=== PATIENT | male | born 1950 | race Caucasian/White ===

== ENCOUNTER 2020-04-03 16:29 | Emergency (ER) | payer OTHER, SELFPAY ==
--- NOTE | ~2020-04-03 | XR_ITS ---
XR elbow LT min 3V 04/03/2020 16:57 INDICATION: Left elbow pain PROCEDURE: 4 views left elbow COMPARISON: No prior studies for comparison. FINDINGS: Fracture, dislocation or subluxation is not identified. The soft tissues appear within norm al limits. No foreign bodies are identified. IMPRESSION: 1: NO ACUTE BONE OR JOINT ABNORMALITY IDENTIFIED. Reviewed, dictated and finalized at location A.
[2020-04-03 16:40] VITALS: BP 150/49; PULSE 83; RESP 18; TEMP 37.3; O2SAT 98
--- NOTE | 2020-04-03 16:51 | ED.UPPEXIN ---
HPI - Extremity Injury (Upper) General Chief Complaint: Extremity Injury, Upper Stated Complaint: left arm swollen Time Seen by Provider: 04/03/20 16:45 Source: patient Mode of arrival: ambulatory Limitations: no limitations History of Present Illness HPI narrative: Shivani Velasquez is a 69 yo male with no PMH who comes to express care for left elbow injury that occurred 2 weeks ago when he fell off a combine and struck elbow at small abrasion to elbow that is since healed but the elbow is now swollen painful and indurated. He stated that he felt better for a number of days after the incident but the last 3 to 4 days is gotten continually worse and is painful to straighten or flex and tender to touch Related Data Allergies Allergy/AdvReac Type Severity Reaction Status Date / Time No Known Allergies Allergy Verified 04/03/20 16:47 Review of Systems Review of Systems: Narrative: CONSTITUTIONAL: Denies fever, chills, sweats. EYES: Denies visual changes, redness, discharge. ENT: Denies rhinorrhea, congestion, sore throat, otalgia. CARDIOVASCULAR: Denies chest pain, palpitations, edema. RESPIRATORY: Denies dyspnea, wheezing, cough GASTROINTESTINAL: Denies abdominal pain, nausea, vomiting, diarrhea. GENITOURINARY: Denies dysuria, hematuria, abnormal discharge SKIN: Denies rash or itching. NEUROLOGIC: Denies numbness, or focal weakness. PSYCHIATRIC: Denies anxiety or depression. Red swollen painful left elbow post injury remote 2 weeks PMFSH Past Medical History Medical History No acute medical problems Family History Family History Father Alcoholism Social History Social History Smoking status: Never smoker Alcohol intake: never Comments At time of signature, I agree with nursing past medical, surgical, social and family history. There is no relevant family history pertinent to the presenting complaint. Blood pressure is elevated this is possibly due to to the pain from his elbow follow up with PCP Exam Narrative: Exam Narrative: GENERAL: This is a well-nourished, well-developed patient, in mild distress. HEAD: normocephalic, atraumatic. EYES: Sclera clear/white. Vision is grossly intact. EARS: External ears normal, Hearing grossly intact. NOSE: External nose normal without nasal discharge, nares without redness, no rhinorrhea. THROAT: Mucous membranes moist, NECK: Neck supple, CARDIOVASCULAR: Regular rate and rhythm without murmurs, gallops, or rubs. RESPIRATORY: Clear to auscultation. Breath sounds equal bilaterally. No wheezes, rales, or rhonchi. GASTROINTESTINAL: Abdomen soft, SKIN: warm, intact with no suspicious lesions or rash, good texture and turgor. NEURO: awake, alert, and oriented to person, place and time. There were no obvious focal neurologic abnormalities. Steady gait EXTREMITIES: Normal range of motion. Good indurated right elbow with open area where scab was; tender to touch area of induration is around all of olecranon. BACK: Nontender without deformity Course Course Emergency Course: Came to express care for evaluation of left elbow after fall 2 weeks ago elbow is now red and swollen X ray of left elbow-x-ray read as no acute joint abnormality; started on antibiotics combination of Bactrim and Keflex; warm soaks to the arm arm obese line put in sling; needs follow-up with orthopedics Vital Signs Vital signs: Vital Signs Temperature 99.1 F 04/03/20 16:40 Pulse Rate 83 04/03/20 16:40 Respiratory Rate 18 04/03/20 16:40 Blood Pressure 150/49 H 04/03/20 16:40 Pulse Oximetry 98 04/03/20 16:40 Temperature 99.1 F 04/03/20 16:40 Pulse Rate 83 04/03/20 16:40 Respiratory Rate 18 04/03/20 16:40 Blood Pressure 150/49 H 04/03/20 16:40 Pulse Oximetry 98 04/03/20 16:40 MDM - Extremity Injury (Upper)
[2020-04-03] MEDS: TETANUS,DIPHTHERIA,AC PERTUSSIS ADULT (0.5 ML) BOOSTRIX IM (17:02)
== END 2020-04-03 17:32 | disposition home or self-care (01) ==
PROVIDERS: Emergency Provider Nurse Practitioner; PCP Family Medicine Adolescent Medicine
DX: L03.114 Cellulitis of left upper limb (principal)
CPT/HCPCS: 73080; 90471; 90715; 99213; A4565; G0463

== ENCOUNTER 2022-05-12 09:39 | Emergency (ER) | payer OTHER, SELFPAY ==
[2022-05-12 09:42] VITALS: BP 138/73; PULSE 71; RESP 14; TEMP 36.4; O2SAT 96
--- NOTE | 2022-05-12 09:59 | ED.URI ---
HPI - URI/Sore Throat General Chief Complaint: Upper Respiratory Infection Stated Complaint: cold sore throat and head congestion Time Seen by Provider: 05/12/22 09:59 History of Present Illness HPI Narrative: Patient presents with a full week long history of nasal congestion cough runny nose and sinus pressure. Patient states he works outside of this taken multiple [id number] medications for his symptoms. No shortness of breath no chest pain no high fever. Related Data Home Medications Medication Instructions Recorded Confirmed No Home Medications 05/12/22 05/12/22 Allergies Allergy/AdvReac Type Severity Reaction Status Date / Time No Known Allergies Allergy Verified 05/12/22 10:04 Review of Systems Review of Systems: CONSTITUTIONAL: Denies chills, or sweats. Reports fever and generalized body aches EYES: Denies visual changes, redness, or discharge. ENT: Denies otalgia. Reports nasal congestion runny nose and sore throat CARDIOVASCULAR: Denies chest pain, palpitations, or edema. RESPIRATORY: Denies dyspnea. Reports occasional cough GASTROINTESTINAL: Denies abdominal pain, nausea, vomiting, or diarrhea. GENITOURINARY: Denies dysuria or hematuria. SKIN: Denies rash or itching. MUSCULOSKELETAL: Denies back pain, joint pain, or myalgia. Reports generalized body aches NEUROLOGIC: Denies headache, numbness, or weakness. PSYCHIATRIC: Denies anxiety or depression. [facility] Past Medical History Medical History No acute medical problems Family History Family History Father Alcoholism Social History Social History Smoking status: Never smoker Alcohol intake: never Comments At time of signature, agree with nursing past medical, surgical, social and family history. There is no relevant family history pertinent to the presenting complaint Exam Narrative: The patient is a well-developed, well-nourished in no acute distress. SKIN: Skin is warm and dry without erythema, swelling or exudate. There is good turgor. No tenting. HEAD: Atraumatic. Normocephalic. No temporal or scalp tenderness. EYES: Moist and bright. Sclera and conjunctivae normal. No discharge. PERRLA. Extraocular motions intact. Gross visual acuity intact. EARS: Pinna is normal shape and contour. Clear external auditory canals. TM pearly krause with good cone of light, no erythema or suppuration. Bilateral cerumen noted no gross hearing deficit. NOSE: pink, moist mucosa with good air movement. Clear rhinorrhea without nasal flaring. Septum midline. Moderate amount of maxillary sinus pressure and tenderness Mouth: moist mucous membranes. THROAT; mild erythema noted to posterior oropharynx with moderate postnasal drainage. Without exudate or ulceration.. Uvula midline. Normal movement of soft palate. NECK: Supple and nontender with full range of motion without discomfort. No meningeal signs. LUNGS: Equal and bilateral breath sounds without wheezes, rales or rhonchi. CHEST: The chest wall is without retractions or use of accessory muscles. HEART: Has a regular rate and rhythm without murmur, gallops, click or rub. ABDOMEN: Soft, nontender with positive active bowel sounds. No rebound tenderness. EXTREMITIES: Without cyanosis, clubbing or edema. Equal 2+ distal pulses and 2 second capillary refill noted. NEUROLOGIC: alert, active, . The patient moves all extremities with normal muscle strength. Normal muscle tone is noted. Normal coordination is noted. NO focal neurological findings noted. Course Course Level of Care: Express Care Visit Vital Signs Vital signs: Vital Signs Temperature 36.4 C 05/12/22 09:42 Pulse Rate 71 05/12/22 09:42 Respiratory Rate 14 05/12/22 09:42 Blood Pressure 138/73 05/12/22 09:42 Pulse Oximetry 96 05/12/22 09:42 Oxygen Delivery Room Air 1
== END 2022-05-12 10:11 | disposition home or self-care (01) ==
PROVIDERS: Emergency Provider Nurse Practitioner Family; PCP Family Medicine Adolescent Medicine
DX: J01.00 Acute maxillary sinusitis, unspecified (principal)
CPT/HCPCS: 99211; G0463

== ENCOUNTER 2024-06-20 00:08 | Day surgery (SDC) | payer OTHER, SELFPAY ==
[2024-06-02 09:52] VITALS: BMI 25.0
[2024-06-20 06:27] VITALS: BP 116/72; PULSE 97; RESP 16; TEMP 36.2; O2SAT 98
[2024-06-20] MEDS: LACTATED RINGERS 1,000 ML 150 ML IV CONT (06:37)
--- NOTE | 2024-06-20 07:54 | PM.HPGS ---
History of Present Illness History of Present Illness Consent: Risks, benefits, and alternatives have been discussed and questions answered. Patient agrees to proceed with procedure. Chief complaint: fecal abnormalities Narrative: Shivani Velasquez is a 73 year old male here for first colonoscopy, + fobt Review of Systems Review of Systems: All systems reviewed & are unremarkable except as noted in HPI and below PMFSH Past Medical History Medical History (Updated 06/20/24 @ 07:55 by Raj Rosales MD) Occult blood in stools No acute medical problems Family History Family History (Updated 05/20/23 @ 05:43 by Merrick Bernal MD) Father Alcoholism COPD (chronic obstructive pulmonary disease) Mother Heart disease Social History Social History Smoking status: Never smoker Alcohol intake: never Substance use: never Substance use type: does not use Living arrangements: with family Spiritual care concerns: No Meds Home Medications and Allergies Home Medications ?Medication ?Instructions ?Recorded ?Confirmed ?Type diclofenac sodium 75 mg 75 mg PO BID #60 tabs 04/06/24 06/02/24 Rx tablet,delayed release Allergies Allergy/AdvReac Type Severity Reaction Status Date / Time No Known Allergies Allergy Verified 06/20/24 06:25 Vital Signs Vital Signs - 24 hr 06/20/24 06:27 Temperature 97.2 F L Pulse Rate 97 Respiratory Rate 16 Blood Pressure 116/72 Pulse Oximetry 98 Oxygen Delivery Room Air Exam Const: General: comfortable and no acute distress HENMT: Face/Nose/Sinus: Normal nares present Eyes: General: appearance normal, both eyes and all related structures Neck: Neck: no JVD Resp: Auscultation: clear to auscultation bilaterally Cardio: Rate: regular rate Rhythm: regular rhythm GI: Inspection: non-distended GI Palp: Yes Soft to palpation Skin: General skin exam: normal color Neuro: General: gait normal Speech: normal speech Extrem: General: normal to inspection Psych: Mental Status: mental status grossly normal Assessment and Plan Assessment and plan (1) Occult blood in stools: Code(s): R19.5 - Other fecal abnormalities Status: Acute Assessment and Plan: colonoscopy
[2024-06-20 08:35] VITALS: BP 98/63; PULSE 72; RESP 14; O2SAT 93
[2024-06-20 08:45] VITALS: BP 96/56; PULSE 70; RESP 14; O2SAT 92
[2024-06-20 08:55] VITALS: BP 118/76; PULSE 63; RESP 15; O2SAT 94
== END 2024-06-20 09:16 | disposition home or self-care (01) ==
PROVIDERS: PCP Family Medicine Adolescent Medicine; Referring Provider Family Medicine Adolescent Medicine; Visit Provider Internal Medicine Gastroenterology
PROC: 0DJD8ZZ Inspection of Lower Intestinal Tract, Via Natural or Artificial Opening Endoscopic (ICD-10-PCS; CPT 45378; principal; 2024-06-20 08:00)
DX: D12.2 Benign neoplasm of ascending colon (principal); D12.3 Benign neoplasm of transverse colon; D12.4 Benign neoplasm of descending colon; K63.5 Polyp of colon; Z82.49 Family history of ischemic heart disease and other diseases of the circulatory system
CPT/HCPCS: 45385; 88305; J2003; J2371; J2704; J7120

== ENCOUNTER 2024-11-07 17:47 | Emergency (ER) | payer OTHER, SELFPAY ==
--- NOTE | ~2024-11-07 | CT_ITS ---
EXAMINATION: CTA chest PE protocol DATE: 11/07/2024 20:24 INDICATION: SOA TECHNIQUE: Computed tomography angiography (CTA) of the chest was performed with 100 mL Omnipaque-350 intravenous contrast timed to evaluate the pulmonary arteries. Coronal maximum intensity projection 3D-reconstructions were created by the technologist. The dose-length product (DLP) was 499.85 mGy-cm. Automated exposure control and iterative reconstruction technique were employed. COMPARISON: X-ray chest, same date. FINDINGS: Lung parenchyma and airways: No focal consolidation or pneumothorax. Minimal bibasilar atelectasis. B ibasilar scar. Left major fissure intrafissural node. Granuloma is calcifications. Patent airways. Pleura: Unremarkable. Thoracic inlet, axillae and chest wall: Unremarkable. Thoracic aorta: No significant dilation. No dissection. Mild atherosclerotic calcification Mediastinum: Normal. Heart and pericardium: Normal. Coronary artery calcifications: Mild. Upper abdomen: No significant finding. Bones: No acute osseous finding. Pulmonary arteries: Study quality: Adequate. No pulmonary emboli detected. IMPRESSION: No CT evidence of acute pulmonary embolus. No acute intrathoracic process detected. Reviewed, dictated and finalized at location K.
--- NOTE | ~2024-11-07 | XR_ITS ---
EXAMINATION: XR chest 2V Exam Date/Time: 11/07/2024 18:12 CDT HISTORY: sob Comparison: None. RESULT: Lines, tubes, and devices: None. Lungs and pleura: Clear. Cardiomediastinal silhouette: Unremarkable. Other: No acute osseous or upper abdominal finding. IMPRESSION: No acute cardiopulmonary process. Reviewed, dictated and finalized at location K.
[2024-11-07 17:43] VITALS: BP 145/93; PULSE 68; RESP 23; TEMP 36.4; O2SAT 100
--- NOTE | 2024-11-07 17:51 | ECG_ITS ---
Test Date: 2024-11-07 17:53:55 Measurements Intervals Mathews Rate: 72 P: 74 HI: 167 QRS: -6 QRSD: 83 T: 41 QT: 423 QTc: 464 Interpretive Statements SINUS RHYTHM BASELINE ARTIFACT- I, II, III, AVR, AVL, AVF, V1-V6 NORMAL ECG No previous ECG available for comparison Electronically Signed On 11-07-2024 20:38:04 CDT by Darek Stacy D.O.
[2024-11-07 17:55] VITALS: PULSE 66; O2SAT 100
[2024-11-07] MEDS: SODIUM CHLORIDE 0.9% IV 1,000 ML 999 ML IV CONT (18:07)
[2024-11-07 18:22] LABS: Basophils Percent Auto 0.7 % (0.2-1.2); Eosinophils Absolute Auto 0.2 K/mm3 (0-0.3); Eosinophils Percent Auto 2.7 % (0-4.4); Hematocrit 35.2 % (42.0-52.0); Hemoglobin 12.3 g/dL (14.0-18.0); Immature Granulocyte Absolute 0.08 K/mm3 (0.00-0.031); Immature Granulocyte Percent A 1.4 % (0-0.5); Lymphocytes Absolute Auto 0.61 K/mm3 (0.9-3.2); Lymphocytes Percent Auto 10.4 % (18.3-44.2); Mean Corpuscular HGB Conc 34.9 g/dl (32-36); Mean Corpuscular Hemoglobin 31.1 pg (26-34); Mean Corpuscular Volume 89.1 fl (80-100); Monocytes Absolute Auto 0.6 K/mm3 (0.1-0.6); Monocytes Percent Auto 9.9 % (2.6-8.5); Neutrophils Absolute Auto 4.4 K/mm3 (1.3-6.7); Neutrophils Percent Auto 74.9 % (45.5-73.1); Platelet Count Result 223 k/mm3 (150-375); Red Blood Count 3.95 M/mm3 (4.6-6.20); Red Cell Distribution Width 11.9 % (11.5-14.5); White Blood Count 5.8 K/mm3 (4.5-10.0)
[2024-11-07 18:48] LABS: Lactic Acid Reflex 1.7 mmol/L (0.7-2.0)
[2024-11-07 18:50] LABS: Alanine Aminotransferase 19 U/L (6-50); Albumin Level 3.9 g/dL (3.5-5.1); Alkaline Phosphatase 85 U/L (38-126); Anion Gap 8 mmol/L (4-12); Aspartate Amino Transferase 26 U/L (17-59); Bilirubin,Total 0.7 mg/dL (0.2-1.3); Blood Urea Nitrogen 17 mg/dL (9-20); Calcium 9.1 mg/dL (8.4-10.2); Carbon Dioxide 21 mmol/L (22-30); Chloride 108 mmol/L (98-107); Estimated CRCL calculation 58 ml/min; Estimated Glomerular Filt Rate > 60; Glucose 105 mg/dL (65-110); Sodium 137 mmol/L (137-145)
--- OUTSIDE RECORDS SUMMARY | 2024-11-07 18:56 | XMS_ITS | Clinical Summary ---
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 Gender Identity Not on file Sexual Orientation Not on file Plan of Treatment Health Maintenance Due Date Last Done Comments Colon Cancer Screening-Colonoscopy 1952 Depression Screening 1952 Fall Risk Assessment 1950 Hepatitis C Screening 1950 DTaP/Tdap/Td Vaccine (1 - Tdap) 12/28/1963 Hepatitis B Screening 1970 Pneumococcal vaccine 65+ (1 of 1 - PCV) 2002 Abdominal Aortic Aneurysm (A AA) Screen 2017 Well Visit 65+ 2017 Covid-19 Vaccine (2023-2 5 season) 2024 04/06/2024, 07/07/2023, 05/26/2022, Additional history exists Zoster Vaccine Completed 07/07/2023, 05/05/2023 Influenza Vaccine Completed 04/06/2024, , 05/26/2022 Insurance [facility] [place] Care Teams Motorcycle Deliverer Relationship Specialty Start Date End Date Merrick Bernal MD [address] [place] [address] PCP - General Family Medicine 07/04/24
--- OUTSIDE RECORDS SUMMARY | 2024-11-07 18:56 | XMS_ITS | Referral Summary ---
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
--- OUTSIDE RECORDS SUMMARY | 2024-11-07 18:57 | XMS_ITS ---
Author Organization [facility] Address [address] [place] [address] Phone Care Team Providers Care Decommissioning Well Site Manager Name Role Phone Aayush Nguyen MD Unavailable Tico Ibrahim MD Unavailable [phone] Merrick Bernal MD Primary Care Provider + Active Problems Problem Noted Date Diagnosed Date History of therapeutic radiation 09/09/2024 Overview (09/09/2024): Prostate and pelvic lymph node radiotherapy 70 Gy to the prostate/sv and 50.40 Gy to the clinically uninvolved pelvic lymph node in 20 fractions from 08/02/2024 thru 09/08/2024. Androgen deprivation therapy 07/15/2024 Overview (07/15/2024): Started Orgovyx and Xtandi 07/11/2024. Prostate cancer 07/13/2024 Cancer Staging:Clinical stage from 05/27/2024:Stage IIIA(cT2a, cN0, cM0, PSA: 31.5, Grade Group: 3) - Signed by Tico Ibrahim MD on 07/15/2024 Overview (09/09/2024): By NCCN criteria clinically localized high-risk group prostate cancer, AJCC 8th edition clinical stage IIIA (cT2a, cN0, cM0, PSA: 31.5). High-risk group secondary to PSA greater than 20. Prostate cancer was confirmed on prostate biopsies 05/27/2024. He was started on ADT with Orgovyx and Xtandi 07/11/2024 under the guidance of urology. He began prostate and pelvic lymph node radiotherapy 08/02/2024 and completed 09/08/2024 receiving 70 Gy to the prostate/sv and 50.40 Gy to the clinically uninvolved pelvic lymph node in 20 fractions. Current Treatment and Therapy Plans No current plan information found. Past Treatment and Therapy Plans No past plan information found. Current Radiation Episodes * VMAT: Bilateral Prostate, Bilateral PelvisOverview* First Treatment Date Latest Treatment Date Treatment Site Technique Goal Episode Provider 08/02/2024 09/08/2024 Bilateral ProstateBilateral Pelvis VMAT Curative * Linked Problems Treatment Courses* Course C1 08/02/2024 - 09/08/2024 Treatment Period Fraction Dose Fractions Total Dose Plans Planned [id number] 08/02/2024 - 09/08/2024 250 cGy / 28 7 ,000 cGy Reference Points Delivered Pelvis_PRP 08/02/2024 - 09/08/2024 7,000 cGy
--- OUTSIDE RECORDS SUMMARY | 2024-11-07 18:57 | XMS_ITS | Clinical Summary ---
Author Organization [facility] Address [address] [place] [address] Phone Care Team Providers Care Television Cameraman Name Role Phone Aayush Nguyen MD Unavailable Tico Ibrahim MD Unavailable [phone] Merrick Bernal MD Primary Care Provider + Allergies No known active allergies Medications Xtandi 80 MG Tablet Take 80 mg by mouth daily. Take; 2 tablets once a day 07/01/2024 Active Orgovyx 120 MG Tablet Take 120 mg by mouth daily. 07/01/2024 Active Active Problems Problem Noted Date Diagnosed Date [...] uninvolved pelvic lymph node in 20 fractions. Encounters Date Type Department Care Team Description 10/04/2024 9:00 AM CDT Office Visit [facility] Oncology Services [address] [place] [phone] Tico Ibrahim MD Encounter for monitoring androgen deprivation therapy (Primary Dx); Prostate cancer (HCC); History of therapeutic radiation Discharge Disposition: Discharged to home or Selfcare 10/04/2024 Travel 09/19/2024 1:44 PM CDT - 09/19/2024 11:59 PM CDT Hospital Encounter [facility] Mammography [address] [place] [address] Tico Ibrahim MD Discharge Disposition: Discharged to home or Selfcare 09/19/2024 Travel 09/14/2024 Documentation Only [facility] [address] [place] [phone] Tico Ibrahim MD 09/08/2024 1:00 PM CDT Clinical Support [facility] [address] [place] [phone] Tico Ibrahim MD Encounter for radiotherapy (Primary Dx); Encounter for monitoring androgen deprivation therapy; Prostate cancer (HCC); Acute radiation proctitis; Lower urinary tract symptoms (LUTS); Adverse effect of radiation, initial encounter Discharge Disposition: Discharged to home or Selfcare 09/08/2024 Travel 09/07/2024 1:00 PM CDT Clinical Support [facility] Oncology [facility] [address] [place] [phone] Tico Ibrahim MD Discharge Disposition: Discharged to home or Selfcare 09/07/2024 Travel 09/06/2024 1:00 PM CDT Clinical Support [facility] Oncology [facility] [address] [place] [phone] Tico Ibrahim MD Discharge Disposition: Discharged to home or Selfcare 09/06/2024 Travel 09/05/2024 1:15 PM CDT Office Visit [facility] On[facility] [address] [place] [phone] Tico Ibrahim MD Encounter for radiotherapy (Primary Dx); Androgen deprivation therapy; Prostate cancer (HCC); Acute radiation proctitis; Lower urinary tract symptoms (LUTS); Adverse effect of radiation, initial encounter Discharge Disposition: Discharged to home or Selfcare 09/05/2024 1:00 PM CDT Clinical Support [facility] Oncology Services [address] [place] [phone] Tico Ibrahim MD Discharge Disposition: Discharged to home or Selfcare 09/05/2024 Travel 09/02/2024 1:00 PM CDT Clinical Support [facility] [address] [place] [phone] Tico Ibrahim MD Discharge Disposition: Discharged to home or Selfcare 09/02/2024 Travel 09/01/2024 1:00 PM CDT Clinical Support [facility] [address] [place] [phone] Tico Ibrahim MD Discharge Disposition: Discharged to home or Selfcare 09/01/2024 Travel 08/31/2024 1:00 PM CDT Clinical Support [facility] Oncology [facility] [address] [place] [phone] Tico Ibrahim MD Discharge Disposition: Discharged to home or Selfcare 08/31/2024 Travel 08/30/2024 1:00 PM CDT Clinical Support [facility] Oncology [facility] [address] [place] [phone] Tico Ibrahim MD Discharge Disposition: Discharged to home or Selfcare 08/30/2024 Travel 08/29/2024 1:15 PM CDT Office Visit [facility] [address] [place] [phone] Tico Ibrahim MD Encounter for radiotherapy (Primary Dx); Androgen deprivation therapy; Prostate cancer (HCC); Acute radiation proctitis; Lower urinary tract symptoms (LUTS); Adverse effect of radiation, initial encounter Discharge Disposition: Discharged to home or Selfcare 08/29/2024 1:00 PM CDT Clinical Support [facility] [address] [place] [phone] Tico Ibrahim MD Discharge Disposition: Discharged to home or Selfcare 08/29/2024 Travel 08/26/2024 1:00 PM CDT Clinical Support [facility] [address] [place] [phone] Tico Ibrahim MD Discharge Disposition: Discharged to home or Selfcare 08/26/2024 Travel 08/25/2024 1:00 PM CDT Clinical Support [facility] [address] [place] [phone] Tico Ibrahim MD Discharge Disposition: Discharged to home or Selfcare 08/25/2024 Travel 08/24/2024 1:00 PM CDT Clinical Support [facility] [address] [place] [phone] Tico Ibrahim MD Discharge Disposition: Discharged to home or Selfcare 08/24/2024 Travel 08/23/2024 1:00 PM CDT Clinical Support [facility] On[facility] [address] [place] [phone] Tico Ibrahim MD Discharge Disposition: Discharged to home or Selfcare 08/23/2024 Travel 08/22/2024 1:15 PM CDT Office Visit [facility] [address] [place] [phone] Tico Ibrahim MD Encounter for radiotherapy (Primary Dx); Androgen deprivation therapy; Prostate cancer (HCC); Acute radiation proctitis; Lower urinary tract symptoms (LUTS); Adverse effect of radiation, initial encounter Discharge Disposition: Discharged to home or Selfcare 08/22/2024 1:00 PM CDT Clinical Support [facility] [address] [place] [phone] Tico Ibrahim MD Discharge Disposition: Discharged to home or Selfcare 08/22/2024 Travel 08/19/2024 1:00 PM CDT Clinical Support [facility] [address] [place] [phone] Tico Ibrahim MD Discharge Disposition: Discharged to home or Selfcare 08/19/2024 Travel 08/18/2024 1:00 PM CDT Clinical Support [facility] [address] [place] [phone] Tico Ibrahim MD Discharge Disposition: Discharged to home or Selfcare 08/18/2024 Travel 08/17/2024 1:00 PM CDT Clinical Support [facility] [address] [place] [phone] Tico Ibrahim MD Discharge Disposition: Discharged to home or Selfcare 08/17/2024 Travel 08/16/2024 1:00 PM CDT Clinical Support [facility] [address] [place] [phone] Tico Ibrahim MD Discharge Disposition: Discharged to home or Selfcare 08/16/2024 Travel 08/15/2024 1:15 PM CDT Office Visit [facility] [address] [place] [phone] Tico Ibrahim MD Encounter for radiotherapy (Primary Dx); Androgen deprivation therapy; Prostate cancer (HCC) Discharge Disposition: Discharged to home or Selfcare 08/15/2024 1:00 PM CDT Clinical Support [facility] [address] [place] [phone] Tico Ibrahim MD Discharge Disposition: Discharged to home or Selfcare 08/15/2024 Travel 08/12/2024 1:00 PM LOCK STITCH CHANNELER Clinical Support [facility] [address] [place] [phone] Tico Ibrahim MD Discharge Disposition: Discharged to home or Selfcare 08/12/2024 Travel 08/11/2024 1:00 PM LOCK STITCH CHANNELER Clinical Support [facility] [address] [place] [phone] Tico Ibrahim MD Discharge Disposition: Discharged to home or Selfcare 08/11/2024 Travel 08/10/2024 1:00 PM LOCK STITCH CHANNELER Clinical Support [facility] [address] [place] [phone] Tico Ibrahim MD Discharge Disposition: Discharged to home or Selfcare 08/10/2024 Documentation Only [facility] [address] [place] [phone] Tico Ibrahim MD 08/10/2024 Travel 08/09/2024 1:00 PM LOCK STITCH CHANNELER Clinical Support [facility] Oncology Services [address] [place] [phone] Tico Ibrahim MD Discharge Disposition: Discharged to home or Selfcare 08/09/2024 Travel 08/08/2024 1:15 PM LOCK STITCH CHANNELER [facility] [address] [place] [phone] Tico Ibrahim MD Encounter for radiotherapy (Primary Dx); Androgen deprivation therapy; Prostate cancer (HCC) Discharge Disposition: Discharged to home or Selfcare 08/08/2024 1:00 PM LOCK STITCH CHANNELER Clinical Support [facility] [address] [place] [phone] Tico Ibrahim MD Discharge Disposition: Discharged to home or Selfcare 08/08/2024 Travel from Last 3 Months Family History Medical History Relation Name Comments Emphysema Father Heart Disease Mother Prostate Cancer Paternal Cousin Alive but having to take a pill 10 years later so likely has metastatic disease. 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 LOCK STITCH CHANNELER Gender Identity Not on file Sexual Orientation Not on file Last Filed Vital Signs Vital Sign Reading Time Taken Comments Blood Pressure 123/65 10/04/2024 8:58 AM CDT Pulse 76 10/04/2024 8:58 AM CDT Temperature 36.2 C (97.2 F) 10/04/2024 8:58 AM CDT Respiratory Rate 18 10/04/2024 8:58 AM CDT Oxygen Saturation 99% 10/04/2024 8:58 AM CDT Inhaled Oxygen Concentration - - Weight 78.5 kg (173 lb) 10/04/2024 8:58 AM CDT Height 172.7 cm (5' 8) 10/04/2024 8:58 AM CDT Body Mass Index 26.3 10/04/2024 8:58 AM CDT Plan of Treatment Upcoming Encounters Date Type Department Care Team (Late st Contact Info) Description 01/03/2025 9:30 AM CDT [facility] [address] [place] [phone] Tico Ibrahim MD [address] [place] [address] Discharge Disposition: Discharged to home or Selfcare Health Maintenance Due Date Last Done Comments Hepatitis C Virus (HCV) Screening 1950 TdaP Immunization 1950 Pneumococcal Immunization (50+ years) (1 of 2 - PCV) 12/28/1971 Colonoscopy 1997 Colorectal Cancer Screening 1997 Cologuard 2002 Immunochemical Fecal Occult Blood 2002 SARS-COV-2 Immunization (6 - Mixed Product risk season) 2024 04/06/2024, 07/07/2023, 05/26/2022, Additional history exists Respiratory Syncytial Virus (RSV) Immunization (Adult) Completed 07/07/2023 Zoster Immunization Completed 07/07/2023, Influenza Immunization Completed , 05/05/2023, 05/26/2022 Hepatitis B Immunization Aged Out No longer eligible based on patient's age to complete this topic Human Papillomavirus (HPV) Immunization Aged Out No longer eligible based on patient's age to complete this topic Meningococcal Immunization (ACWY) Aged Out No longer eligible based on patient's age to complete this topic Rotavirus Immunization Aged Out No lo nger eligible based on patient's age to complete this topic Procedures Procedure Name Priority Date/Time Associated Diagnosis Comments JUNAID BONE DENSITOMETRY AXIAL SKELETON Routine 09/19/2024 2:10 PM CDT Prostate cancer (HCC) Androgen deprivation therapy RAD ONC ARIA COURSE SUMMARY Routine 09/09/2024 7:26 AM CDT RAD ONC ARIA SESSION SUMMARY Routine 09/08/2024 1:08 PM CDT Encounter for radiotherapy Encounter for monitoring androgen deprivation therapy Prostate cancer (HCC) RAD ONC ARIA SESSION SUMMARY Routine 09/07/2024 1:09 PM CDT RAD ONC ARIA SESSION SUMMARY Routine 09/06/2024 1:08 PM CDT RAD ONC ARIA SESSION SUMMARY Routine 09/05/2024 1:08 PM CDT RAD ONC ARIA SESSION SUMMARY Routine 09/02/2024 1:09 PM CDT RAD ONC ARIA SESSION SUMMARY Routine 09/01/2024 1:11 PM CDT RAD ONC ARIA SESSION SUMMARY Routine 08/31/2024 1:11 PM CDT RAD ONC ARIA SESSION SUMMARY Routine 08/30/2024 1:12 PM CDT RAD ONC ARIA SESSION SUMMARY Routine 08/29/2024 1:10 PM CDT RAD ONC ARIA SESSION SUMMARY Routine 08/26/2024 1:13 PM CDT RAD ONC ARIA SESSION SUMMARY Routine 08/25/2024 1:09 PM CDT RAD ONC ARIA SESSION SUMMARY Routine 08/24/2024 1:11 PM CDT RAD ONC ARIA SESSION SUMMARY Routine 08/23/2024 1:15 PM CDT RAD ONC ARIA SESSION SUMMARY Routine 08/22/2024 1:14 PM CDT RAD ONC ARIA SESSION SUMMARY Routine 08/19/2024 1:11 PM CDT RAD ONC ARIA SESSION SUMMARY Routine 08/18/2024 1:16 PM CDT RAD ONC ARIA SESSION SUMMARY Routine 08/17/2024 1:14 PM CDT RAD ONC ARIA SESSION SUMMARY Routine 08/16/2024 1:03 PM CDT RAD ONC ARIA SESSION SUMMARY Routine 08/15/2024 1:07 PM CDT RAD ONC ARIA SESSION SUMMARY Routine 08/12/2024 1:09 PM LOCK STITCH CHANNELER RAD ONC ARIA SESSION SUMMARY Routine 08/11/2024 1:09 PM LOCK STITCH CHANNELER RAD ONC ARIA SESSION SUMMARY Routine 08/10/2024 1:08 PM LOCK STITCH CHANNELER RAD ONC ARIA SESSION SUMMARY Routine 08/09/2024 1:08 PM LOCK STITCH CHANNELER RAD ONC ARIA SESSION SUMMARY Routine 08/08/2024 1:12 PM LOCK STITCH CHANNELER from Last 3 Months Results * JUNAID BONE DENSITOMETRY AXIAL SKELETON (09/19/2024 2:10 PM CDT) Anatomical Region Laterality Modality BODY N/A Computed Radiogr aphy 09/21/2024 5:56 AM CDT Impressions 09/21/2024 5:58 AM CDT IMPRESSION: Normal bone mass. REFERENCE: Bone mineral density: T-Score: Normal (T-score above or = -1.0) Low bone mass (T-score between -1.0 and -2.5) replaces the previously used term osteopenia Osteoporosis (T-score = or below -2.5) Z-Score: Within the expected range for age (Z-score above -2.0) Below the expected range for age (Z-score is -2.0 or below) Please see below follow up recommendations. Medical evaluation for secondary causes of low bone mineral density may be appropriate. FRAX is a World Health Organization validated fracture risk assessment tool that calculates a person's 10 year probability of a major osteoporosis related fracture and hip fracture. According to the National Osteoporosis Foundation guidelines, postmenopausal women and men age 50 or older with low bone mass and a 10 year probability of a major osteoporosis related fracture = or greater than 20% or a 10 year probability of a hip fracture = or greater than 3% should be considered for pharmacological treatment for the prevention of osteoporosis. For further information, including treatment recommendations, please refer to the 2019 ISCD Official Positions (http://www.iscd.org) and the NOF's Clinician's Guide to Prevention and Treatment of Osteoporosis (http://www.nof.org/professionals/clinical-guidelines) Narrative 09/21/2024 5:58 AM CDT EXAM DESCRIPTION: [facility] BONE DENSITOMETRY AXIAL SKELETON REASON FOR STUDY: 73 y/o year old M with given history of: Prostate cancer (HCC) (By NCCN criteria clinically localized high-risk group, AJCC 8th edition clinical stage IIIA.), Androgen deprivation therapy (Started Orgovyx and Xtandi 07/11/2024.) 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 CLINICAL INFORMATION: Current height: 68 inches Maximum height: 68 inches Weight: 172.8 pounds Risk factors: None COMPARISON: None available FINDINGS: AP LUMBAR SPINE L1-L4: Total BMD is 1.510 g/cm2 T-score is 2.2 LEFT HIP: Total BMD is 1.328 g/cm2 T-score is 1.6 Femoral neck BMD is 1.279 g/cm2 T-score is 1.6 FRAX: FRAX not reported due to T-scores of hip, femoral neck and/or spine being at or above -1.0 (Normal). THIS IS AN ELECTRONICALLY VERIFIED FINAL REPORT 09/21/2024 5:56 AM - Electronically signed by Jeannine Wadsworth M.D. 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 CLINICAL INFORMATION: Current height: 68 inches Maximum height: 68 inches Weight: 172.8 pounds Risk factors: None COMPARISON: None available FINDINGS: AP LUMBAR SPINE L1-L4: Total BMD is 1.510 g/cm2 T-score is 2.2 LEFT HIP: Total BMD is 1.328 g/cm2 T-score is 1.6 Femoral neck BMD is 1.279 g/cm2 T-score is 1.6 FRAX: FRAX not reported due to T-scores of hip, femoral neck and/or spine being at or above -1.0 (Normal). THIS IS AN ELECTRONICALLY VERIFIED FINAL REPORT 09/21/2024 5:56 AM - Electronically signed by Jeannine Wadsworth M.D. TW: TW Report ID: [id number] Reading Location: [place] [address] IMPRESSION: Normal bone mass. REFERENCE: Bone mineral density: T-Score: Normal (T-score above or = -1.0) Low bone mass (T-score between -1.0 and -2.5) replaces the previously used term osteopenia Osteoporosis (T-score = or below -2.5) Z-Score: Within the expected range for age (Z-score above -2.0) Below the expected range for age (Z-score is -2.0 or below) Please see below follow up recommendations. Medical evaluation for secondary causes of low bone mineral density may be appropriate. FRAX is a World Health Organization validated fracture risk assessment tool that calculates a person's 10 year probability of a major osteoporosis related fracture and hip fracture. According to the National Osteoporosis Foundation guidelines, postmenopausal women and men age 50 or older with low bone mass and a 10 year probability of a major osteoporosis related fracture = or greater than 20% or a 10 year probability of a hip fracture = or greater than 3% should be considered for pharmacological treatment for the prevention of osteoporosis. For further information, including treatment recommendations, please refer to the 2019 ISCD Official Positions (http://www.iscd.org) and the NOF's Clinician's Guide to Prevention and Treatment of Osteoporosis (http://www.nof.org/professionals/clinical-guidelines) us Tico Ibrahim MD IMG DEXA ORDERABLES Fin al Result * RAD ONC ARIA COURSE SUMMARY (09/09/2024 7:26 AM CDT) Course ID C1 ARIA RO MODEL Course Intent Curative ARIA RO MODEL Course Start Date 07/15/2024 2:24 PM ARIA RO MODEL Course End Date 09/09/2024 7:26 AM 08/02/2024 1:29 PM ARIA RO MODEL Course Last Treatment Date 09/08/2024 1:11 PM ARIA RO MODEL Course Elapsed Days 37 ARIA RO MODEL Reference Point ID Pelvis_PRP ARIA RO MODEL Reference Point Dosage Given to Date 70 Gy ARIA RO MODEL Plan ID [id number] ARIA RO MODEL Plan Name [id number] ARIA RO MODEL Energy 10X ARIA RO MODEL Plan Fractions Treated to Date 28 ARIA RO MODEL Plan Total Fractions Prescribed 28 ARIA RO MODEL Plan Prescribed Dose Per Fraction 2.5 Gy ARIA RO MODEL Plan Total Prescribed Dose 7,000 cGy ARIA RO MODEL Plan Primary Reference Point Pelvis_PRP ARIA RO MODEL 09/09/2024 7:26 AM CDT us Unknown Provider RADIATION ONCOLOGY ORDERABLES F inal Result ARIA RO MODEL [address] [place] [address] * RAD ONC ARIA SESSION SUMMARY (09/08/2024 1:08 PM CDT) Course ID C1 ARIA RO MODEL Course Intent Curative ARIA RO MODEL Course Start Date 07/15/2024 2:24 PM ARIA RO MODEL Session Number 28 ARIA RO MODEL Course End Date 08/02/2024 1:29 PM ARIA RO MODEL Course Last Treatment Date 09/08/2024 1:11 PM ARIA RO MODEL Course Elapsed Days 37 ARIA RO MODEL Reference Point ID Pelvis_PRP ARIA RO MODEL Reference Point Dosage Given to Date 70 Gy ARIA RO MODEL Reference Point Session Dosage Given 2.5 Gy ARIA RO MODEL Plan ID [id number] ARIA RO MODEL Plan Name Prostate & [id number] ARIA RO MODEL Energy 10X ARIA RO MODEL Plan Fractions Treated to Date 28 ARIA RO MODEL Plan Total Fractions Prescribed 28 ARIA RO MODEL Plan Prescribed Dose Per Fraction 2.5 Gy ARIA RO MODEL Plan Total Prescribed Dose 7,000 cGy ARIA RO MODEL Plan Primary Reference Point Pelvis_PRP ARIA RO MODEL 09/08/2024 1:08 PM CDT us Unknown Provider RADIATION ONCOLOGY ORDERABLES F inal Result Performing Organization Address City/State/[facility] Co de Phone Number ARIA RO MODEL [address] [place] [address] * RAD ONC ARIA SESSION SUMMARY (09/07/2024 1:09 PM CDT) Course ID C1 ARIA RO MODEL Course Intent Curative ARIA RO MODEL Course Start Date 07/15/2024 2:24 PM ARIA RO MODEL Session Number 27 ARIA RO MODEL Course End Date 08/02/2024 1:29 PM ARIA RO MODEL Course Last Treatment Date 09/07/2024 1:12 PM ARIA RO MODEL Course Elapsed Days 36 ARIA RO MODEL Reference Point ID Pelvis_PRP ARIA RO MODEL Reference Point Dosage Given to Date 67.5 Gy ARIA RO MODEL Reference Point Session Dosage Given 2.5 Gy ARIA RO MODEL Plan ID [id number] ARIA RO MODEL Plan Name Prostate & [id number] ARIA RO MODEL Energy 10X ARIA RO MODEL Plan Fractions Treated to Date 27 ARIA RO MODEL Plan Total Fractions Prescribed 28 ARIA RO MODEL Plan Prescribed Dose Per Fraction 2.5 Gy ARIA RO MODEL Plan Total Prescribed Dose 7,000 cGy ARIA RO MODEL Plan Primary Reference Point Pelvis_PRP ARIA RO MODEL 09/07/2024 1:09 PM CDT us Unknown Provider RADIATION ONCOLOGY ORDERABLES F inal Result Performing Organization Address [facility] Co de Phone Number ARIA RO MODEL [address] [place] [address] * RAD ONC ARIA SESSION SUMMARY (09/06/2024 1:08 PM CDT) Course ID C1 ARIA RO MODEL Course Intent Curative ARIA RO MODEL Course Start Date 07/15/2024 2:24 PM ARIA RO MODEL Session Number 26 ARIA RO MODEL Course End Date 08/02/2024 1:29 PM ARIA RO MODEL Course Last Treatment Date 09/06/2024 1:11 PM ARIA RO MODEL Course Elapsed Days 35 ARIA RO MODEL Reference Point ID Pelvis_PRP ARIA RO MODEL Reference Point Dosage Given to Date 65 Gy ARIA RO MODEL Reference Point Session Dosage Given 2.5 Gy ARIA RO MODEL Plan ID [id number] ARIA RO MODEL Plan Name Prostate & [id number] ARIA RO MODEL Energy 10X ARIA RO MODEL Plan Fractions Treated to Date 26 ARIA RO MODEL Plan Total Fractions Prescribed 28 ARIA RO MODEL Plan Prescribed Dose Per Fraction 2.5 Gy ARIA RO MODEL Plan Total Prescribed Dose 7,000 cGy ARIA RO MODEL Plan Primary Reference Point Pelvis_PRP ARIA RO MODEL 09/06/2024 1:08 PM CDT us Unknown Provider RADIATION ONCOLOGY ORDERABLES F inal Result Performing Organization Address [facility] Co de Phone Number ARIA RO MODEL [address] [place] [address] * RAD ONC ARIA SESSION SUMMARY (09/05/2024 1:08 PM CDT) Course ID C1 ARIA RO MODEL Course Intent Curative ARIA RO MODEL Course Start Date 07/15/2024 2:24 PM ARIA RO MODEL Session Number 25 ARIA RO MODEL Course End Date 08/02/2024 1:29 PM ARIA RO MODEL Course Last Treatment Date 09/05/2024 1:11 PM ARIA RO MODEL Course Elapsed Days 34 ARIA RO MODEL Reference Point ID Pelvis_PRP ARIA RO MODEL Reference Point Dosage Given to Date 62.5 Gy ARIA RO MODEL Reference Point Session Dosage Given 2.5 Gy ARIA RO MODEL Plan ID [id number] ARIA RO MODEL Plan Name Prostate & [id number] ARIA RO MODEL Energy 10X ARIA RO MODEL Plan Fractions Treated to Date 25 ARIA RO MODEL Plan Total Fractions Prescribed 28 ARIA RO MODEL Plan Prescribed Dose Per Fraction 2.5 Gy ARIA RO MODEL Plan Total Prescribed Dose 7,000 cGy ARIA RO MODEL Plan Primary Reference Point Pelvis_PRP ARIA RO MODEL 09/05/2024 1:08 PM CDT us Unknown Provider RADIATION ONCOLOGY ORDERABLES F inal Result Performing Organization Address [facility] [facility] Co de Phone Number ARIA RO MODEL [address] [place] [address] * RAD ONC ARIA SESSION SUMMARY (09/02/2024 1:09 PM CDT) Course ID C1 ARIA RO MODEL Course Intent Curative ARIA RO MODEL Course Start Date 07/15/2024 2:24 PM ARIA RO MODEL Session Number 24 ARIA RO MODEL Course End Date 08/02/2024 1:29 PM ARIA RO MODEL Course Last Treatment Date 09/02/2024 1:12 PM ARIA RO MODEL Course Elapsed Days 31 ARIA RO MODEL Reference Point ID Pelvis_PRP ARIA RO MODEL Reference Point Dosage Given to Date 60 Gy ARIA RO MODEL Reference Point Session Dosage Given 2.5 Gy ARIA RO MODEL Plan ID [id number] ARIA RO MODEL Plan Name Prostate & [id number] ARIA RO MODEL Energy 10X ARIA RO MODEL Plan Fractions Treated to Date 24 ARIA RO MODEL Plan Total Fractions Prescribed 28 ARIA RO MODEL Plan Prescribed Dose Per Fraction 2.5 Gy ARIA RO MODEL Plan Total Prescribed Dose 7,000 cGy ARIA RO MODEL Plan Primary Reference Point Pelvis_PRP ARIA RO MODEL 09/02/2024 1:09 PM CDT us Unknown Provider RADIATION ONCOLOGY ORDERABLES F inal Result Performing Organization Address [facility] Co de Phone Number ARIA RO MODEL [address] [place] [address] * RAD ONC ARIA SESSION SUMMARY (09/01/2024 1:11 PM CDT) Course ID C1 ARIA RO MODEL Course Intent Curative ARIA RO MODEL Course Start Date 07/15/2024 2:24 PM ARIA RO MODEL Session Number 23 ARIA RO MODEL Course End Date 08/02/2024 1:29 PM ARIA RO MODEL Course Last Treatment Date 09/01/2024 1:14 PM ARIA RO MODEL Course Elapsed Days 30 ARIA RO MODEL Reference Point ID Pelvis_PRP ARIA RO MODEL Reference Point Dosage Given to Date 57.5 Gy ARIA RO MODEL Reference Point Session Dosage Given 2.5 Gy ARIA RO MODEL Plan ID [id number] ARIA RO MODEL Plan Name Prostate & [id number] ARIA RO MODEL Energy 10X ARIA RO MODEL Plan Fractions Treated to Date 23 ARIA RO MODEL Plan Total Fractions Prescribed 28 ARIA RO MODEL Plan Prescribed Dose Per Fraction 2.5 Gy ARIA RO MODEL Plan Total Prescribed Dose 7,000 cGy ARIA RO MODEL Plan Primary Reference Point Pelvis_PRP ARIA RO MODEL 09/01/2024 1:11 PM CDT us Unknown Provider RADIATION ONCOLOGY ORDERABLES F inal Result Performing Organization Address City/State/[facility] Co de Phone Number ARIA RO MODEL [address] [place] [address] * RAD ONC ARIA SESSION SUMMARY (08/31/2024 1:11 PM CDT) Course ID C1 ARIA RO MODEL Course Intent Curative ARIA RO MODEL Course Start Date 07/15/2024 2:24 PM ARIA RO MODEL Session Number 22 ARIA RO MODEL Course End Date 08/02/2024 1:29 PM ARIA RO MODEL Course Last Treatment Date 08/31/2024 1:14 PM ARIA RO MODEL Course Elapsed Days 29 ARIA RO MODEL Reference Point ID Pelvis_PRP ARIA RO MODEL Reference Point Dosage Given to Date 55 Gy ARIA RO MODEL Reference Point Session Dosage Given 2.5 Gy ARIA RO MODEL Plan ID [id number] ARIA RO MODEL Plan Name Prostate & [id number] ARIA RO MODEL Energy 10X ARIA RO MODEL Plan Fractions Treated to Date 22 ARIA RO MODEL Plan Total Fractions Prescribed 28 ARIA RO MODEL Plan Prescribed Dose Per Fraction 2.5 Gy ARIA RO MODEL Plan Total Prescribed Dose 7,000 cGy ARIA RO MODEL Plan Primary Reference Point Pelvis_PRP ARIA RO MODEL 08/31/2024 1:11 PM CDT us Unknown Provider RADIATION ONCOLOGY ORDERABLES F inal Result Performing Organization Address [facility] Co de Phone Number ARIA RO MODEL [address] [place] [address] * RAD ONC ARIA SESSION SUMMARY (08/30/2024 1:12 PM CDT) Course ID C1 ARIA RO MODEL Course Intent Curative ARIA RO MODEL Course Start Date 07/15/2024 2:24 PM ARIA RO MODEL Session Number 21 ARIA RO MODEL Course End Date 08/02/2024 1:29 PM ARIA RO MODEL Course Last Treatment Date 08/30/2024 1:16 PM ARIA RO MODEL Course Elapsed Days 28 ARIA RO MODEL Reference Point ID Pelvis_PRP ARIA RO MODEL Reference Point Dosage Given to Date 52.5 Gy ARIA RO MODEL Reference Point Session Dosage Given 2.5 Gy ARIA RO MODEL Plan ID [id number] ARIA RO MODEL Plan Name Prostate & [id number] ARIA RO MODEL Energy 10X ARIA RO MODEL Plan Fractions Treated to Date 21 ARIA RO MODEL Plan Total Fractions Prescribed 28 ARIA RO MODEL Plan Prescribed Dose Per Fraction 2.5 Gy ARIA RO MODEL Plan Total Prescribed Dose 7,000 cGy ARIA RO MODEL Plan Primary Reference Point Pelvis_PRP ARIA RO MODEL 08/30/2024 1:12 PM CDT us Unknown Provider RADIATION ONCOLOGY ORDERABLES F inal Result Performing Organization Address [facility] Co de Phone Number ARIA RO MODEL [address] [place] [address] * RAD ONC ARIA SESSION SUMMARY (08/29/2024 1:10 PM CDT) Course ID C1 ARIA RO MODEL Course Intent Curative ARIA RO MODEL Course Start Date 07/15/2024 2:24 PM ARIA RO MODEL Session Number 20 ARIA RO MODEL Course End Date 08/02/2024 1:29 PM ARIA RO MODEL Course Last Treatment Date 08/29/2024 1:12 PM ARIA RO MODEL Course Elapsed Days 27 ARIA RO MODEL Reference Point ID Pelvis_PRP ARIA RO MODEL Reference Point Dosage Given to Date 50 Gy ARIA RO MODEL Reference Point Session Dosage Given 2.5 Gy ARIA RO MODEL Plan ID [id number] ARIA RO MODEL Plan Name Prostate & [id number] ARIA RO MODEL Energy 10X ARIA RO MODEL Plan Fractions Treated to Date 20 ARIA RO MODEL Plan Total Fractions Prescribed 28 ARIA RO MODEL Plan Prescribed Dose Per Fraction 2.5 Gy ARIA RO MODEL Plan Total Prescribed Dose 7,000 cGy ARIA RO MODEL Plan Primary Reference Point Pelvis_PRP ARIA RO MODEL 08/29/2024 1:10 PM CDT us Unknown Provider RADIATION ONCOLOGY ORDERABLES F inal Result Performing Organization Address City/State/[facility] Co de Phone Number ARIA RO MODEL [address] [place] [address] * RAD ONC ARIA SESSION SUMMARY (08/26/2024 1:13 PM CDT) Course ID C1 ARIA RO MODEL Course Intent Curative ARIA RO MODEL Course Start Date 07/15/2024 2:24 PM ARIA RO MODEL Session Number 19 ARIA RO MODEL Course End Date 08/02/2024 1:29 PM ARIA RO MODEL Course Last Treatment Date 08/26/2024 1:16 PM ARIA RO MODEL Course Elapsed Days 24 ARIA RO MODEL Reference Point ID Pelvis_PRP ARIA RO MODEL Reference Point Dosage Given to Date 47.5 Gy ARIA RO MODEL Reference Point Session Dosage Given 2.5 Gy ARIA RO MODEL Plan ID [id number] ARIA RO MODEL Plan Name Prostate & [id number] ARIA RO MODEL Energy 10X ARIA RO MODEL Plan Fractions Treated to Date 19 ARIA RO MODEL Plan Total Fractions Prescribed 28 ARIA RO MODEL Plan Prescribed Dose Per Fraction 2.5 Gy ARIA RO MODEL Plan Total Prescribed Dose 7,000 cGy ARIA RO MODEL Plan Primary Reference Point Pelvis_PRP ARIA RO MODEL 08/26/2024 1:13 PM CDT us Unknown Provider RADIATION ONCOLOGY ORDERABLES F inal Result Performing Organization Address [facility] Co de Phone Number ARIA RO MODEL [address] [place] [address] * RAD ONC ARIA SESSION SUMMARY (08/25/2024 1:09 PM CDT) Course ID C1 ARIA RO MODEL Course Intent Curative ARIA RO MODEL Course Start Date 07/15/2024 2:24 PM ARIA RO MODEL Session Number 18 ARIA RO MODEL Course End Date 08/02/2024 1:29 PM ARIA RO MODEL Course Last Treatment Date 08/25/2024 1:12 PM ARIA RO MODEL Course Elapsed Days 23 ARIA RO MODEL Reference Point ID Pelvis_PRP ARIA RO MODEL Reference Point Dosage Given to Date 45 Gy ARIA RO MODEL Reference Point Session Dosage Given 2.5 Gy ARIA RO MODEL Plan ID [id number] ARIA RO MODEL Plan Name Prostate & [id number] ARIA RO MODEL Energy 10X ARIA RO MODEL Plan Fractions Treated to Date 18 ARIA RO MODEL Plan Total Fractions Prescribed 28 ARIA RO MODEL Plan Prescribed Dose Per Fraction 2.5 Gy ARIA RO MODEL Plan Total Prescribed Dose 7,000 cGy ARIA RO MODEL Plan Primary Reference Point Pelvis_PRP ARIA RO MODEL 08/25/2024 1:09 PM CDT us Unknown Provider RADIATION ONCOLOGY ORDERABLES F inal Result Performing Organization Address [facility] Co de Phone Number ARIA RO MODEL [address] [place] [address] * RAD ONC ARIA SESSION SUMMARY (08/24/2024 1:11 PM CDT) Course ID C1 ARIA RO MODEL Course Intent Curative ARIA RO MODEL Course Start Date 07/15/2024 2:24 PM ARIA RO MODEL Session Number 17 ARIA RO MODEL Course End Date 08/02/2024 1:29 PM ARIA RO MODEL Course Last Treatment Date 08/24/2024 1:14 PM ARIA RO MODEL Course Elapsed Days 22 ARIA RO MODEL Reference Point ID Pelvis_PRP ARIA RO MODEL Reference Point Dosage Given to Date 42.5 Gy ARIA RO MODEL Reference Point Session Dosage Given 2.5 Gy ARIA RO MODEL Plan ID [id number] ARIA RO MODEL Plan Name Prostate & [id number] ARIA RO MODEL Energy 10X ARIA RO MODEL Plan Fractions Treated to Date 17 ARIA RO MODEL Plan Total Fractions Prescribed 28 ARIA RO MODEL Plan Prescribed Dose Per Fraction 2.5 Gy ARIA RO MODEL Plan Total Prescribed Dose 7,000 cGy ARIA RO MODEL Plan Primary Reference Point Pelvis_PRP ARIA RO MODEL 08/24/2024 1:11 PM CDT us Unknown Provider RADIATION ONCOLOGY ORDERABLES F inal Result Performing Organization Address [facility] Co de Phone Number ARIA RO MODEL [address] [place] [address] * RAD ONC ARIA SESSION SUMMARY (08/23/2024 1:15 PM CDT) Course ID C1 ARIA RO MODEL Course Intent Curative ARIA RO MODEL Course Start Date 07/15/2024 2:24 PM ARIA RO MODEL Session Number 16 ARIA RO MODEL Course End Date 08/02/2024 1:29 PM ARIA RO MODEL Course Last Treatment Date 08/23/2024 1:18 PM ARIA RO MODEL Course Elapsed Days 21 ARIA RO MODEL Reference Point ID Pelvis_PRP ARIA RO MODEL Reference Point Dosage Given to Date 40 Gy ARIA RO MODEL Reference Point Session Dosage Given 2.5 Gy ARIA RO MODEL Plan ID [id number] ARIA RO MODEL Plan Name Prostate & [id number] ARIA RO MODEL Energy 10X ARIA RO MODEL Plan Fractions Treated to Date 16 ARIA RO MODEL Plan Total Fractions Prescribed 28 ARIA RO MODEL Plan Prescribed Dose Per Fraction 2.5 Gy ARIA RO MODEL Plan Total Prescribed Dose 7,000 cGy ARIA RO MODEL Plan Primary Reference Point Pelvis_PRP ARIA RO MODEL 08/23/2024 1:15 PM CDT us Unknown Provider RADIATION ONCOLOGY ORDERABLES F inal Result Performing Organization Address [facility] Co de Phone Number ARIA RO MODEL [address] [place] [address] * RAD ONC ARIA SESSION SUMMARY (08/22/2024 1:14 PM CDT) Course ID C1 ARIA RO MODEL Course Intent Curative ARIA RO MODEL Course Start Date 07/15/2024 2:24 PM ARIA RO MODEL Session Number 15 ARIA RO MODEL Course End Date 08/02/2024 1:29 PM ARIA RO MODEL Course Last Treatment Date 08/22/2024 1:17 PM ARIA RO MODEL Course Elapsed Days 20 ARIA RO MODEL Reference Point ID Pelvis_PRP ARIA RO MODEL Reference Point Dosage Given to Date 37.5 Gy ARIA RO MODEL Reference Point Session Dosage Given 2.5 Gy ARIA RO MODEL Plan ID [id number] ARIA RO MODEL Plan Name Prostate & [id number] ARIA RO MODEL Energy 10X ARIA RO MODEL Plan Fractions Treated to Date 15 ARIA RO MODEL Plan Total Fractions Prescribed 28 ARIA RO MODEL Plan Prescribed Dose Per Fraction 2.5 Gy ARIA RO MODEL Plan Total Prescribed Dose 7,000 cGy ARIA RO MODEL Plan Primary Reference Point Pelvis_PRP ARIA RO MODEL 08/22/2024 1:14 PM CDT us Unknown Provider RADIATION ONCOLOGY ORDERABLES F inal Result ARIA RO MODEL [address] [place] [address] * RAD ONC ARIA SESSION SUMMARY (08/19/2024 1:11 PM CDT) Course ID C1 ARIA RO MODEL Course Intent Curative ARIA RO MODEL Course Start Date 07/15/2024 2:24 PM ARIA RO MODEL Session Number 14 ARIA RO MODEL Course End Date 08/02/2024 1:29 PM ARIA RO MODEL Course Last Treatment Date 08/19/2024 1:15 PM ARIA RO MODEL Course Elapsed Days 17 ARIA RO MODEL Reference Point ID Pelvis_PRP ARIA RO MODEL Reference Point Dosage Given to Date 35 Gy ARIA RO MODEL Reference Point Session Dosage Given 2.5 Gy ARIA RO MODEL Plan ID [id number] ARIA RO MODEL Plan Name Prostate & [id number] ARIA RO MODEL Energy 10X ARIA RO MODEL Plan Fractions Treated to Date 14 ARIA RO MODEL Plan Total Fractions Prescribed 28 ARIA RO MODEL Plan Prescribed Dose Per Fraction 2.5 Gy ARIA RO MODEL Plan Total Prescribed Dose 7,000 cGy ARIA RO MODEL Plan Primary Reference Point Pelvis_PRP ARIA RO MODEL 08/19/2024 1:11 PM CDT us Unknown Provider RADIATION ONCOLOGY ORDERABLES F inal Result Performing Organization Address City/[facility] Co de Phone Number ARIA RO MODEL [address] [place] [address] * RAD ONC ARIA SESSION SUMMARY (08/18/2024 1:16 PM CDT) Course ID C1 ARIA RO MODEL Course Intent Curative ARIA RO MODEL Course Start Date 07/15/2024 2:24 PM ARIA RO MODEL Session Number 13 ARIA RO MODEL Course End Date 08/02/2024 1:29 PM ARIA RO MODEL Course Last Treatment Date 08/18/2024 1:18 PM ARIA RO MODEL Course Elapsed Days 16 ARIA RO MODEL Reference Point ID Pelvis_PRP ARIA RO MODEL Reference Point Dosage Given to Date 32.5 Gy ARIA RO MODEL Reference Point Session Dosage Given 2.5 Gy ARIA RO MODEL Plan ID [id number] ARIA RO MODEL Plan Name Prostate & [id number] ARIA RO MODEL Energy 10X ARIA RO MODEL Plan Fractions Treated to Date 13 ARIA RO MODEL Plan Total Fractions Prescribed 28 ARIA RO MODEL Plan Prescribed Dose Per Fraction 2.5 Gy ARIA RO MODEL Plan Total Prescribed Dose 7,000 cGy ARIA RO MODEL Plan Primary Reference Point Pelvis_PRP ARIA RO MODEL 08/18/2024 1:16 PM CDT us Unknown Provider RADIATION ONCOLOGY ORDERABLES F inal Result Performing Organization Address City/[facility]/ZIP Co de Phone Number ARIA RO MODEL [address] [place] [address] * RAD ONC ARIA SESSION SUMMARY (08/17/2024 1:14 PM CDT) Course ID C1 ARIA RO MODEL Course Intent Curative ARIA RO MODEL Course Start Date 07/15/2024 2:24 PM ARIA RO MODEL Session Number 12 ARIA RO MODEL Course End Date 08/02/2024 1:29 PM ARIA RO MODEL Course Last Treatment Date 08/17/2024 1:17 PM ARIA RO MODEL Course Elapsed Days 15 ARIA RO MODEL Reference Point ID Pelvis_PRP ARIA RO MODEL Reference Point Dosage Given to Date 30 Gy ARIA RO MODEL Reference Point Session Dosage Given 2.5 Gy ARIA RO MODEL Plan ID [id number] ARIA RO MODEL Plan Name Prostate & [id number] ARIA RO MODEL Energy 10X ARIA RO MODEL Plan Fractions Treated to Date 12 ARIA RO MODEL Plan Total Fractions Prescribed 28 ARIA RO MODEL Plan Prescribed Dose Per Fraction 2.5 Gy ARIA RO MODEL Plan Total Prescribed Dose 7,000 cGy ARIA RO MODEL Plan Primary Reference Point Pelvis_PRP ARIA RO MODEL 08/17/2024 1:14 PM CDT us Unknown Provider RADIATION ONCOLOGY ORDERABLES F inal Result ARIA RO MODEL [address] [place] [address] * RAD ONC ARIA SESSION SUMMARY (08/16/2024 1:03 PM CDT) Course ID C1 ARIA RO MODEL Course Intent Curative ARIA RO MODEL Course Start Date 07/15/2024 2:24 PM ARIA RO MODEL Session Number 11 ARIA RO MODEL Course End Date 08/02/2024 1:29 PM ARIA RO MODEL Course Last Treatment Date 08/16/2024 1:06 PM ARIA RO MODEL Course Elapsed Days 14 ARIA RO MODEL Reference Point ID Pelvis_PRP ARIA RO MODEL Reference Point Dosage Given to Date 27.5 Gy ARIA RO MODEL Reference Point Session Dosage Given 2.5 Gy ARIA RO MODEL Plan ID [id number] ARIA RO MODEL Plan Name Prostate & [id number] ARIA RO MODEL Energy 10X ARIA RO MODEL Plan Fractions Treated to Date 11 ARIA RO MODEL Plan Total Fractions Prescribed 28 ARIA RO MODEL Plan Prescribed Dose Per Fraction 2.5 Gy ARIA RO MODEL Plan Total Prescribed Dose 7,000 cGy ARIA RO MODEL Plan Primary Reference Point Pelvis_PRP ARIA RO MODEL 08/16/2024 1:03 PM CDT us Unknown Provider RADIATION ONCOLOGY ORDERABLES F inal Result Performing Organization Address [facility] Co de Phone Number ARIA RO MODEL [address] [place] [address] * RAD ONC ARIA SESSION SUMMARY (08/15/2024 1:07 PM CDT) Course ID C1 ARIA RO MODEL Course Intent Curative ARIA RO MODEL Course Start Date 07/15/2024 2:24 PM ARIA RO MODEL Session Number 10 ARIA RO MODEL Course End Date 08/02/2024 1:29 PM ARIA RO MODEL Course Last Treatment Date 08/15/2024 1:09 PM ARIA RO MODEL Course Elapsed Days 13 ARIA RO MODEL Reference Point ID Pelvis_PRP ARIA RO MODEL Reference Point Dosage Given to Date 25 Gy ARIA RO MODEL Reference Point Session Dosage Given 2.5 Gy ARIA RO MODEL Plan ID [id number] ARIA RO MODEL Plan Name Prostate & [id number] ARIA RO MODEL Energy 10X ARIA RO MODEL Plan Fractions Treated to Date 10 ARIA RO MODEL Plan Total Fractions Prescribed 28 ARIA RO MODEL Plan Prescribed Dose Per Fraction 2.5 Gy ARIA RO MODEL Plan Total Prescribed Dose 7,000 cGy ARIA RO MODEL Plan Primary Reference Point Pelvis_PRP ARIA RO MODEL 08/15/2024 1:07 PM CDT us Unknown Provider RADIATION ONCOLOGY ORDERABLES F inal Result Performing Organization Address [facility] Co de Phone Number ARIA RO MODEL [address] [place] [address] * RAD ONC ARIA SESSION SUMMARY (08/12/2024 1:09 PM LOCK STITCH CHANNELER) Course ID C1 ARIA RO MODEL Course Intent Curative ARIA RO MODEL Course Start Date 07/15/2024 2:24 PM ARIA RO MODEL Session Number 9 ARIA RO MODEL Course End Date 08/02/2024 1:29 PM ARIA RO MODEL Course Last Treatment Date 08/12/2024 1:12 PM ARIA RO MODEL Course Elapsed Days 10 ARIA RO MODEL Reference Point ID Pelvis_PRP ARIA RO MODEL Reference Point Dosage Given to Date 22.5 Gy ARIA RO MODEL Reference Point Session Dosage Given 2.5 Gy ARIA RO MODEL Plan ID [id number] ARIA RO MODEL Plan Name Prostate & [id number] ARIA RO MODEL Energy 10X ARIA RO MODEL Plan Fractions Treated to Date 9 ARIA RO MODEL Plan Total Fractions Prescribed 28 ARIA RO MODEL Plan Prescribed Dose Per Fraction 2.5 Gy ARIA RO MODEL Plan Total Prescribed Dose 7,000 cGy ARIA RO MODEL Plan Primary Reference Point Pelvis_PRP ARIA RO MODEL 08/12/2024 1:09 PM LOCK STITCH CHANNELER us Unknown Provider RADIATION ONCOLOGY ORDERABLES F inal Result Performing Organization Address [facility] Co de Phone Number ARIA RO MODEL [address] [place] [address] * RAD ONC ARIA SESSION SUMMARY (08/11/2024 1:09 PM LOCK STITCH CHANNELER) Course ID C1 ARIA RO MODEL Course Intent Curative ARIA RO MODEL Course Start Date 07/15/2024 2:24 PM ARIA RO MODEL Session Number 8 ARIA RO MODEL Course End Date 08/02/2024 1:29 PM ARIA RO MODEL Course Last Treatment Date 08/11/2024 1:12 PM ARIA RO MODEL Course Elapsed Days 9 ARIA RO MODEL Reference Point ID Pelvis_PRP ARIA RO MODEL Reference Point Dosage Given to Date 20 Gy ARIA RO MODEL Reference Point Session Dosage Given 2.5 Gy ARIA RO MODEL Plan ID [id number] ARIA RO MODEL Plan Name Prostate & [id number] ARIA RO MODEL Energy 10X ARIA RO MODEL Plan Fractions Treated to Date 8 ARIA RO MODEL Plan Total Fractions Prescribed 28 ARIA RO MODEL Plan Prescribed Dose Per Fraction 2.5 Gy ARIA RO MODEL Plan Total Prescribed Dose 7,000 cGy ARIA RO MODEL Plan Primary Reference Point Pelvis_PRP ARIA RO MODEL 08/11/2024 1:09 PM LOCK STITCH CHANNELER us Unknown Provider RADIATION ONCOLOGY ORDERABLES F inal Result Performing Organization Address [facility] Co de Phone Number ARIA RO MODEL [address] [place] [address] * RAD ONC ARIA SESSION SUMMARY (08/10/2024 1:08 PM LOCK STITCH CHANNELER) Course ID C1 ARIA RO MODEL Course Intent Curative ARIA RO MODEL Course Start Date 07/15/2024 2:24 PM ARIA RO MODEL Session Number 7 ARIA RO MODEL Course End Date 08/02/2024 1:29 PM ARIA RO MODEL Course Last Treatment Date 08/10/2024 1:10 PM ARIA RO MODEL Course Elapsed Days 8 ARIA RO MODEL Reference Point ID Pelvis_PRP ARIA RO MODEL Reference Point Dosage Given to Date 17.5 Gy ARIA RO MODEL Reference Point Session Dosage Given 2.5 Gy ARIA RO MODEL Plan ID [id number] ARIA RO MODEL Plan Name Prostate & [id number] ARIA RO MODEL Energy 10X ARIA RO MODEL Plan Fractions Treated to Date 7 ARIA RO MODEL Plan Total Fractions Prescribed 28 ARIA RO MODEL Plan Prescribed Dose Per Fraction 2.5 Gy ARIA RO MODEL Plan Total Prescribed Dose 7,000 cGy ARIA RO MODEL Plan Primary Reference Point Pelvis_PRP ARIA RO MODEL 08/10/2024 1:08 PM LOCK STITCH CHANNELER us Unknown Provider RADIATION ONCOLOGY ORDERABLES F inal Result Performing Organization Address City/State/[facility] Co de Phone Number ARIA RO MODEL [address] [place] [address] * RAD ONC ARIA SESSION SUMMARY (08/09/2024 1:08 PM LOCK STITCH CHANNELER) Course ID C1 ARIA RO MODEL Course Intent Curative ARIA RO MODEL Course Start Date 07/15/2024 2:24 PM ARIA RO MODEL Session Number 6 ARIA RO MODEL Course End Date 08/02/2024 1:29 PM ARIA RO MODEL Course Last Treatment Date 08/09/2024 1:10 PM ARIA RO MODEL Course Elapsed Days 7 ARIA RO MODEL Reference Point ID Pelvis_PRP ARIA RO MODEL Reference Point Dosage Given to Date 15 Gy ARIA RO MODEL Reference Point Session Dosage Given 2.5 Gy ARIA RO MODEL Plan ID [id number] ARIA RO MODEL Plan Name Prostate & [id number] ARIA RO MODEL Energy 10X ARIA RO MODEL Plan Fractions Treated to Date 6 ARIA RO MODEL Plan Total Fractions Prescribed 28 ARIA RO MODEL Plan Prescribed Dose Per Fraction 2.5 Gy ARIA RO MODEL Plan Total Prescribed Dose 7,000 cGy ARIA RO MODEL Plan Primary Reference Point Pelvis_PRP ARIA RO MODEL 08/09/2024 1:08 PM LOCK STITCH CHANNELER us Unknown Provider RADIATION ONCOLOGY ORDERABLES F inal Result Performing Organization Address [facility] Co de Phone Number ARIA RO MODEL [address] [place] [address] * RAD ONC ARIA SESSION SUMMARY (08/08/2024 1:12 PM LOCK STITCH CHANNELER) Course ID C1 ARIA RO MODEL Course Intent Curative ARIA RO MODEL Course Start Date 07/15/2024 2:24 PM ARIA RO MODEL Session Number 5 ARIA RO MODEL Course End Date 08/02/2024 1:29 PM ARIA RO MODEL Course Last Treatment Date 08/08/2024 1:14 PM ARIA RO MODEL Course Elapsed Days 6 ARIA RO MODEL Reference Point ID Pelvis_PRP ARIA RO MODEL Reference Point Dosage Given to Date 12.5 Gy ARIA RO MODEL Reference Point Session Dosage Given 2.5 Gy ARIA RO MODEL Plan ID [id number] ARIA RO MODEL Plan Name Prostate & [id number] ARIA RO MODEL Energy 10X ARIA RO MODEL Plan Fractions Treated to Date 5 ARIA RO MODEL Plan Total Fractions Prescribed 28 ARIA RO MODEL Plan Prescribed Dose Per Fraction 2.5 Gy ARIA RO MODEL Plan Total Prescribed Dose 7,000 cGy ARIA RO MODEL Plan Primary Reference Point Pelvis_PRP ARIA RO MODEL 08/08/2024 1:12 PM LOCK STITCH CHANNELER us Unknown Provider RADIATION ONCOLOGY ORDERABLES F inal Result Performing Organization Address [facility] Co de Phone Number ARIA RO MODEL [address] [place] [address] from Last 3 Months Insurance MEDICARE C [employer] Care Teams [employer] Camer[employer] Relationship Specialty Start Date End Date Merrick Bernal MD [address] [place] [address] PCP - General Family Medicine 07/15/24 Aayush Nguyen MD [address] [address] Consulting Physician Urology 07/13/24 Tico Ibrahim MD [address] [place] [address] Consulting Physician Radiation Oncology 07/13/24
[2024-11-07 19:02] LABS: Influenza A QL RT-PCR Negative (Negative); Influenza B QL RT-PCR Negative (Negative); RSV RNA, RT-PCR Negative (Negative); SARS-CoV-2 RNA PCR Negative (Negative)
--- NOTE | 2024-11-07 20:10 | ED_ITS ---
HPI - General Adult General Chief complaint: Shortness of Breath/Dyspnea Stated complaint: SOB Time Seen by Provider: 11/07/24 17:49 History of Present Illness HPI narrative: Patient is a 73-year-old male who presents ER with shortness of breath. He woke up from a nap this afternoon and was acutely short of breath. Reports he has been feeling like he is having hot flashes and he is shaking. He has felt fatigued over last 2 days. No chest pain. No productive cough. No known sick contacts. No alleviating factors. Related Data Allergies Allergy/AdvReac Type Severity Reaction Status Date / Time No Known Allergies Allergy Verified 11/07/24 17:52 Review of Systems 2 Review of Systems: All systems reviewed & are unremarkable except as noted in HPI and below Constitutional: Constitutional: Reports no additional constitutional complaints ENT: Reports system reviewed and no additional complaints, except as documented Cardiovascular: Cardiovascular: Reports no additional cardiovascular complaints Respiratory: Respiratory: Reports no additional respiratory complaints Gastrointestinal: Gastrointestinal: Reports no additional gastrointestinal complaints [facility] Past Medical History Medical History (Updated 11/07/24 @ 21:12 by Sánchez Rai MD) Occult blood in stools No acute medical problems Family History Family History (Updated 05/20/23 @ 05:43 by Merrick Bernal MD) Father Alcoholism COPD (chronic obstructive pulmonary disease) Mother Heart disease Social History Social History Smoking status: Never smoker Alcohol intake: never Substance use: never Substance use type: does not use Living arrangements: with family Spiritual care concerns: No Exam 2 Narrative: GENERAL: Well-appearing, well-nourished, and in no acute distress. HEAD: Normocephalic, atraumatic. ENT: Mucous membranes moist. CHEST: Clear to auscultation. No respiratory distress. HEART: Regular rate and rhythm. Normal peripheral pulses. ABDOMEN: Soft, nontender, nondistended. EXTREMITIES: Normal range of motion. No edema. SKIN: Warm, dry, no rash. NEURO: Alert and oriented x3. PSYCH: Normal mood and affect. Course Course Emergency Course: Patient with normal lung sounds. He did an O2 walking study and dip down into the 80s for the last 10 seconds. Decision made to perform CTA rule out PE. There is no pulmonary embolism or evidence of pneumonia/heart failure. He was given a nebulizer treatment as a precaution. He feels a little shaky afterwards. Repeat walk shows him saturating at 99% for the duration of the walk. Discussed with patient that he could have a viral illness causing the sweats and chills but that there is nothing to prescribed antibiotic for at this time. Vital Signs Vital signs: Vital Signs Temperature 97.5 F L 11/07/24 17:43 Pulse Rate 68 11/07/24 17:43 Respiratory Rate 23 H 11/07/24 17:43 Blood Pressure 145/93 H 11/07/24 17:43 Pulse Oximetry 100 11/07/24 17:43 Oxygen Delivery Room Air 11/07/24 17:43 Temperature 97.5 F L 11/07/24 17:43 Pulse Rate 77 11/07/24 20:46 Respiratory Rate 24 H 11/07/24 20:46 Blood Pressure 145/93 H 11/07/24 17:43 Pulse Oximetry 100 11/07/24 17:55 Oxygen Delivery Room Air 11/07/24 17:55 Medical Decision Making Vital Signs Vital Signs: Vital Signs Temperature 97.5 F L 11/07/24 17:43 Pulse Rate 68 11/07/24 17:43 Respiratory Rate 23 H 11/07/24 17:43 Blood Pressure 145/93 H 11/07/24 17:43 Pulse Oximetry 100 11/07/24 17:43 Oxygen Delivery Room Air 11/07/24 17:43 Temperature 97.5 F L 11/07/24 17:43 Pulse Rate 77 11/07/24 20:46 Respiratory Rate 24 H 11/07/24 20:46 Blood Pressure 145/93 H 11/07/24 17:43 Pulse Oximetry 100 11/07/24 17:55 Oxygen Delivery Room Air 11/07/24 17:55 Lab Data 11/07/24 18:08 11/07/24 18:08 Labs: Lab Results 11/07/24 Range/Units 18:08 WBC 5.8 (4.5-10.0) K/mm3 RBC 3.95 L (4.6-6.20) M/mm3 Hgb 12.3 L (14.0-18.0) g/dL Hct 35.2 L (42.0-52.0) % MCV 89.1 (80-100) fl MCH 31.1 (26-34) pg MCHC 34.9 (32-36) g/dl RDW 11.9 (11.5-14.5) % Plt Count 223 (150-375) k/mm3 MPV 9.0 (7.4-10.4) fl Immature Gran % (Auto) 1.4 H (0-0.5) % Neut % (Auto) 74.9 H (45.5-73.1) % Lymph % (Auto) 10.4 L (18.3-44.2) % Clark % (Auto) 9.9 H (2.6-8.5) % Eos % (Auto) 2.7 (0-4.4) % Baso % (Auto) 0.7 (0.2-1.2) % Lymph # (Auto) 0.61 L (0.9-3.2) K/mm3 Clark # (Auto) 0.6 (0.1-0.6) K/mm3 Eos # (Auto) 0.2 (0-0.3) K/mm3 Baso # (Auto) 0.0 (0.0-0.1) K/mm3 Abs Immat Gran (auto) 0.08 H (0.00-0.031) K/mm3 Absolute Neuts (auto) 4.4 (1.3-6.7) K/mm3 Absolute Nucleated RBC 0.000 (0.0-0.012) K/mm3 Nucleated RBC % 0.0 (0.0-0.2) % Sodium 137 (137-145) mmol/L Potassium 3.0 L (3.4-5.0) mmol/L Chloride 108 H (98-107) mmol/L Carbon Dioxide 21 L (22-30) mmol/L Anion Gap 8 (4-12) mmol/L BUN 17 (9-20) mg/dL Creatinine 1.00 (0.7-1.3) mg/dL Estim Creat Clear Calc 58 ml/min Estimated GFR > 60 (59 - ) Glucose 105 (65-110) mg/dL Lactic Acid 1.7 (0.7-2.0) mmol/L Calcium 9.1 (8.4-10.2) mg/dL Total Bilirubin 0.7 (0.2-1.3) mg/dL AST 26 (17-59) U/L ALT 19 (6-50) U/L Alkaline Phosphatase 85 (38-126) U/L Total Protein 7.0 (6.3-8.2) g/dL Albumin 3.9 (3.5-5.1) g/dL Influenza A (RT-PCR) Negative (Negative) Influenza B (RT-PCR) Negative (Negative) RSV (RT-PCR) Negative (Negative) SARS-CoV-2 RNA (RT-PCR) Negative (Negative) Imaging Data Radiologist's impression: ITS Impressions Chest X-Ray 11/07/24 18:29 IMPRESSION: No acute cardiopulmonary process. Chest CTA 11/07/24 20:28 IMPRESSION: No CT evidence of acute pulmonary embolus. No acute intrathoracic process detected. ECG Data EKG #1: ECG completion date: 11/07/24 ECG completion time: 17:53 EKG Interpretation: normal rate (72), sinus rhythm, normal QRS, normal QT and NL axis Discharge Plan Discharge Clinical Impression: Dyspnea Patient Disposition: Home Condition: Stable Instructions: Shortness of Breath (ED) Additional Instructions: Please return to the emergency department if you develop severe and persistent chest pain, difficulty breathing, dizziness, leg swelling or if you are coughing up blood as these can be signs of a medical emergency. Please call your doctor for a follow up appointment to determine the need for further testing. Patient Language: Azerbaijani Prescriptions: No Action diclofenac sodium 75 mg tablet,delayed release (DR/EC) 75 mg PO BID Qty: 60 2RF Follow-up/Referrals: Merrick Bernal MD [Primary Care Provider] - 1 Week
[2024-11-07] MEDS: IPRATROPIUM 0.5 MG/ALBUTEROL SULFATE 2.5 MG AMPUL.NEB 3 ML INHALATION (20:35)
[2024-11-07 20:39] VITALS: PULSE 64; RESP 26
[2024-11-07 20:46] VITALS: PULSE 77; RESP 24
[2024-11-07 21:46] VITALS: BP 138/73; PULSE 69; RESP 20; O2SAT 99
== END 2024-11-07 21:40 | disposition home or self-care (01) ==
PROVIDERS: Emergency Provider Emergency Medicine; PCP Family Medicine Adolescent Medicine
DX: R06.02 Shortness of breath (principal); Z20.822 Contact with and (suspected) exposure to COVID-19
CPT/HCPCS: 36415; 71046; 71275; 80053; 83605; 85025; 87637; 93005; 94640; 96360; 99284; J7030; Q9967

== ENCOUNTER 2025-04-24 08:20 | Outpatient (CLI) | payer OTHER, SELFPAY ==
--- NOTE | 2025-05-10 11:59 | WPDHOLTEREM ---
Holter/Event Monitor Holter/Event Monitor Date of procedure: 04/24/25 Holter/Event Procedure: 3-7 Day Holter Monitor Indications: Dyspnea Conclusion: 1. 6 days holter monitor on 04/24/25. 2. Underlying rhythm is sinus rhythm. HR range 38-126 bpm; average HR 75 bpm. HR at 38 bpm was due to 2nd AV block on 04/29/25 at 2:59 am. 3. There are rare premature supraventricular complexes and rare supraventricular couplets. No supraventricular tachycardia. 4. There are rare premature ventricular complexes and rare ventricular couplets. No ventricular tachycardia. 5. There is 1 significant pause greater than 3 seconds at 3.1 seconds on 04/29/25 at 2:59 am due to 2nd degree AV block, type II with a 4:1 AV block. 6. Patient reports 17 episodes of symptoms of shortness of breath, chest pain, arm pain which demonstrate sinus rhythm, HR range 61-92 bpm.
== END 2025-04-24 08:21 | disposition home or self-care (01) ==
LOC: ANHCARD 08:21
PROVIDERS: PCP Internal Medicine; Visit Provider Family Medicine
DX: R06.00 Dyspnea, unspecified (principal); R00.1 Bradycardia, unspecified
CPT/HCPCS: 93242

== ENCOUNTER 2025-05-17 08:04 | Outpatient (CLI) | payer OTHER, SELFPAY ==
--- NOTE | 2025-05-17 15:05 | WPDSIXMINUTE ---
Six Minute Walk Procedure Procedure Performed Pulmonary Stress Test (6 min walk) Six Minute Walk Six Minute Walk: This is a 6 minute walk test. The test was performed and interpreted in accordance with the 2014 ERS/ATS task force guidelines. Findings: The patient's resting room air oxygen saturation measured by pulse oximetry was 97%, the heart rate was 79 bpm, and the modified Stephy dyspnea score was 0.5. Patient ambulated for 366 meters and oxygen saturation remained 97 to 98%. At the end of the study the heart rate was 88 bpm and the modified Stephy dyspnea score was 1. The patient did not qualify for supplemental oxygen at rest or with ambulation. There are no prior studies for comparison.
== END 2025-05-17 08:05 | disposition home or self-care (01) ==
LOC: ANHPFT 08:04
PROVIDERS: PCP Internal Medicine; Visit Provider Internal Medicine
DX: R06.09 Other forms of dyspnea (principal)
CPT/HCPCS: 94618